=== PATIENT | male | born 1955 ===

== ENCOUNTER 2021-03-28 20:00 | Emergency (ER) | payer OTHER ==
[~2021-03-28] VITALS: Ht 180.3 cm; Wt 103.0 kg
== END 2021-03-28 22:28 | disposition home or self-care (01) ==
LOC: ER 20:00
DX: S61.421A Laceration with foreign body of right hand, initial encounter (principal); S00.81XA Abrasion of other part of head, initial encounter; W18.09XA Striking against other object with subsequent fall, initial encounter; Y93.89 Activity, other specified; Y92.488 Other paved roadways as the place of occurrence of the external cause; Y99.8 Other external cause status